=== PATIENT | female | born 1985 | race Caucasian/White ===

== ENCOUNTER 2022-08-22 12:17 | Emergency (ER) | payer BC ==
[~2022-08-22] VITALS: Ht 154.9 cm; Wt 86.2 kg
[2022-08-22 12:26] VITALS: BP 143/91; PULSE 90; RESP 17; TEMP 97.5; O2SAT 86
[2022-08-22] MEDS ORDERED: ONDANSETRON 4 MG TAB PO ONE (12:40)
[2022-08-22] MEDS ORDERED: IBUPROFEN 600 MG TAB PO ONE (12:40)
[2022-08-22] MEDS ORDERED: ACETAMINOPHEN EXTRA STRENGTH 500 MG TAB PO ONE (12:40)
[2022-08-22] MEDS ORDERED: DICYCLOMINE 10 MG CAP PO ONE (12:40)
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
[2022-08-22 12:50] VITALS: O2SAT 90
[2022-08-22 13:16] LABS: BASOPHILS # (AUTO) 0.1 K/uL (0.00-0.22); BASOPHILS % (AUTO) 0.9 % (0.0-2.0); EOSINOPHILS # (AUTO) 0.2 K/uL (0-0.4); EOSINOPHILS % (AUTO) 2.5 % (0.0-4.0); HEMATOCRIT 36.5 % (36-48); HEMOGLOBIN 12.4 g/dL (12.0-16.0); LYMPHOCYTES # (AUTO) 1.7 K/uL (2.5-16.5); LYMPHOCYTES % (AUTO) 24.3 % (20.5-51.1); MEAN CORPUSCULAR HEMOGLOBIN 30 pg (27-31); MEAN CORPUSCULAR HGB CONC 34 g/dL (33-37); MEAN CORPUSCULAR VOLUME 89.1 fL (80-94); MONOCYTES # (AUTO) 0.5 K/uL (0.8-1.0); MONOCYTES % (AUTO) 6.7 % (1.7-9.3); NEUTROPHILS # (AUTO) 4.7 K/uL (1.8-7.7); NEUTROPHILS % (AUTO) 65.6 % (42.2-75.2); PLATELET COUNT (AUTO) 356 K/uL (140-450); RED BLOOD CELL COUNT(AUTO) 4.09 MIL/uL (4.20-5.40); RED CELL DISTRIBUTION WIDTH 13.9 % (11.6-13.7); WHITE BLOOD COUNT (AUTO) 7.2 K/uL (4.8-10.8)
--- NOTE | 2022-08-22 13:47 | NUR ---
PT HAS BEEN MEDICATED PER PROVIDERS ORDERS
[2022-08-22 13:48] LABS: ALBUMIN 3.2 g/dL (3.4-5.0); ANION GAP 13.4 (8-16); CARBON DIOXIDE 25.5 mmol/L (21-32); CREATININE 0.8 mg/dL (0.6-1.3); POTASSIUM 3.9 mmol/L (3.5-5.1); TOTAL BILIRUBIN 0.3 mg/dL (0.0-1.0)
[2022-08-22] MEDS ORDERED: ONDA-188 PO (14:18)
[2022-08-22] MEDS ORDERED: CEPH-588 PO (14:18)
[2022-08-22] MEDS ORDERED: ACET-10509 PO (14:18)
--- NOTE | 2022-08-22 14:22 | NUR ---
Patient discharged with v/s stable. Written and verbal after care instructions given and explained. Patient verbalized understanding. Ambulatory with steady gait. All questions addressed prior to discharge. Advised to follow up with PMD.
[2022-08-22 14:23] VITALS: BP 143/92; PULSE 90; RESP 17; TEMP 97.6
--- NOTE | 2022-08-22 14:23 | NUR ---
The patient's care was reviewed and supervised by TALON GABRIEL RN.
== END 2022-08-22 14:22 | disposition home or self-care (01) ==
LOC: MED 12:17
DX: N39.0 Urinary tract infection, site not specified (principal); R19.7 Diarrhea, unspecified; R11.10 Vomiting, unspecified; Z79.899 Other long term (current) drug therapy; Z79.2 Long term (current) use of antibiotics
CPT/HCPCS: 36415; 80053; 81002; 81025; 83690; 85025; 99284; Q0162